=== PATIENT | female | born 2000 | race Caucasian/White ===

== ENCOUNTER → 2022-03-24 | Outpatient (CLI) | payer MEDICAID ==
--- NOTE | 2022-03-24 17:01 | US ---
EXAMINATION TYPE: US thyroid st tissue head/neck DATE OF EXAM: 03/24/2022 COMPARISON: NONE CLINICAL HISTORY: 21-year-old female [id number] NONTOXIC GOITER. TECHNIQUE: Multiple sonographic images of the thyroid gland are obtained. FINDINGS: GLAND SIZE: Right Lobe: 4.5 x 1.3 x 1.4 cm Overall Parenchyma: homogenous Left Lobe: 3.6 x 0.8 x 1.1 cm Overall Parenchyma: homogeneous Isthmus Thickness: 0.48 cm NODULES RIGHT: # of nodules measured on right: 0 LEFT: # of nodules measured on left: 0 ISTHMUS: # of nodules measured in the isthmus: 0 Bilateral neck scanned, no evidence of lymphadenopathy. IMPRESSION: Normal size and homogeneous thyroid gland parenchyma. No discrete nodule is seen.
== END | disposition home or self-care (01) ==
LOC: RADUSWWP 14:06
PROVIDERS: ATTEND Family Medicine
DX: E04.9 Nontoxic goiter, unspecified (principal)
CPT/HCPCS: 76536

== ENCOUNTER → 2022-04-21 | Outpatient (CLI) | payer MEDICAID ==
--- NOTE | 2022-04-21 13:57 | XR ---
EXAMINATION TYPE: XR chest 2V DATE OF EXAM: 04/21/2022 1:38 PM COMPARISON: None TECHNIQUE: XR chest 2V Frontal and lateral views of the chest. CLINICAL INDICATION:Female, 21 years old with history of R07.89 Other chest pain; FINDINGS: Lungs/Pleura: There is no evidence of pleural effusion, focal consolidation, or pneumothorax. Pulmonary vascularity: Unremarkable. Heart/mediastinum: Cardiomediastinal silhouette is unremarkable. Musculoskeletal: No acute osseous pathology. IMPRESSION: No acute cardiopulmonary disease/process.
== END | disposition home or self-care (01) ==
LOC: RADXRMAIN 13:15
PROVIDERS: ATTEND Family Medicine
DX: R07.89 Other chest pain (principal)
CPT/HCPCS: 71046